=== PATIENT | female | born 1995 | race Caucasian/White ===

== ENCOUNTER 2017-03-30 14:05 | Emergency (ER) | payer OTHER ==
[2017-03-30 16:48] VITALS: BP 107/61
--- NOTE | 2017-03-30 16:59 | UC ---
HPI Wound/Suture Re-check - HPI Summary HPI Summary: Had sutures placed here in R thigh 03/20/17 after getting cut from something in her trash bag. Here for suture removal. No problems with pain, drainage or redness. - History Of Current Complaint Chief Complaint: SHATNELLkin Stated Complaint: SUTURE REMOVAL Time Seen by Provider: 03/30/17 16:04 Hx Obtained From: Patient Hx Last Menstrual Period: 03/11/17 Onset/Duration: Sudden Onset Severity: Mild Surgery Date: 03/20/17 - Allergies/Home Medications Allergies/Adverse Reactions: Allergies Allergy/AdvReac Type Severity Reaction Status Date / Time No Known Allergies Allergy Verified 03/30/17 16:47 PMH/Surg Hx/FS Hx/Imm Hx Previously Healthy: Yes - Surgical History Surgical History: Yes Surgery Procedure, Year, and Place: Tonsils. Nasal sx - Family History Known Family History: Negative: Diabetes - Social History Alcohol Use: Occasionally Substance Use Type: None Smoking Status (MU): Never Smoked Tobacco - Immunization History Most Recent Influenza Vaccination: none 2016 Review of Systems Constitutional: Negative Skin: Other - sutures Eyes: Negative ENT: Negative Respiratory: Negative Cardiovascular: Negative Gastrointestinal: Negative Genitourinary: Negative Motor: Negative Neurovascular: Negative Musculoskeletal: Negative Neurological: Negative Psychological: Negative Is Patient Immunocompromised?: No All Other Systems Reviewed And Are Negative: Yes Physical Exam Triage Information Reviewed: Yes Appearance: Well-Appearing, No Pain Distress, Well-Nourished Vital Signs: Initial Vital Signs Temp 99.3 F 03/30/17 16:46 Pulse 88 03/30/17 16:46 Resp 14 03/30/17 16:46 BP 107/61 03/30/17 16:46 Vital Signs Reviewed: Yes Eye Exam: Normal Eyes: Positive: Conjunctiva Clear ENT Exam: Normal ENT: Positive: Normal ENT inspection, Hearing grossly normal, Pharynx normal, TMs normal Neck exam: Normal Respiratory Exam: Normal Respiratory: Positive: Chest non-tender, Lungs clear, Normal breath sounds, No respiratory distress, No accessory muscle use Cardiovascular Exam: Normal Cardiovascular: Positive: RRR, No Murmur Musculoskeletal Exam: Normal Neurological Exam: Normal Neurological: Positive: Alert Psychological Exam: Normal Skin Exam: Other - 5 sutures removed from R thigh, pt flores well. Wound well- healed. Course/Dx - Differential Dx - Laceration/Wound Provider Diagnoses: suture removal R thigh Discharge - Discharge Plan Condition: Stable Disposition: HOME Patient Education Materials: Stitches Removal (ED) Referrals: Avery Lopes MD [Primary Care Provider] -
== END 2017-03-30 16:55 | disposition home or self-care (01) ==
LOC: UCCORT 14:05
DX: S71.111D Laceration without foreign body, right thigh, subsequent encounter (principal); W45.8XXD Other foreign body or object entering through skin, subsequent encounter
CPT/HCPCS: 99211; G0463

== ENCOUNTER 2017-06-28 20:26 | Emergency (ER) | payer OTHER ==
[2017-06-28 21:02] VITALS: BP 119/63
[2017-06-28] MEDS ORDERED: NS 0.9% 1000 ML* 1,000 ML IV ONE (21:17)
[2017-06-28] MEDS ORDERED: Ondansetron INJ* 2 MG/ML VIAL IV ONE (21:18)
--- NOTE | 2017-06-28 21:22 | UC ---
Abdominal Pain Female HPI - HPI Summary HPI Summary: Multiple episodes of vomiting and diarrhea since this morning, "more times than I can count". - History of Current Complaint Chief Complaint: UCGeneralIllness Stated Complaint: VOMITING DIARRHEA Time Seen by Provider: 06/28/17 21:14 Hx Obtained From: Patient Hx Last Menstrual Period: 06/02/17 ?: No Onset/Duration: Sudden Onset - this morning., Still Present Severity Initially: Severe Severity Currently: Severe Pain Intensity: 9 Associated Signs and Symptoms: Positive: Nausea, Vomiting, Diarrhea Allergies/Adverse Reactions: Allergies Allergy/AdvReac Type Severity Reaction Status Date / Time No Known Allergies Allergy Verified 06/28/17 20:54 PMH/Surg Hx/FS Hx/Imm Hx Previously Healthy: Yes - Surgical History Surgical History: Yes Surgery Procedure, Year, and Place: Tonsils. Nasal sx - Family History Known Family History: Positive: Hypertension Negative: Diabetes - Social History Occupation: Student Lives: Dormitory/Roommates Alcohol Use: Occasionally Alcohol Amount: 3 X PER MO. Substance Use Type: None Smoking Status (MU): Never Smoked Tobacco - Immunization History Most Recent Influenza Vaccination: none 2016 Review of Systems Gastrointestinal: Vomiting, Diarrhea Is Patient Immunocompromised?: No All Other Systems Reviewed And Are Negative: Yes Physical Exam Triage Information Reviewed: Yes Appearance: No Pain Distress, Well-Nourished, Ill-Appearing Vital Signs: Initial Vital Signs Temp 99.1 F 06/28/17 20:56 Pulse 119 06/28/17 20:56 Resp 18 06/28/17 20:56 BP 119/63 06/28/17 20:56 Pulse Ox 100 06/28/17 20:56 Vital Signs Reviewed: Yes Eyes: Positive: Conjunctiva Clear ENT: Positive: Pharynx normal, TMs normal Neck exam: Normal Respiratory Exam: Normal Cardiovascular: Positive: RRR, No Murmur, Tachycardia Abdomen Description: Negative: Nontender - tender epigastric and LLQ., McBurney' s Point Tenderness, Peritoneal Signs Bowel Sounds: Positive: Hyperactive Musculoskeletal Exam: Normal Neurological: Positive: Alert, Fatigued Psychological Exam: Normal Skin Exam: Normal Re-Evaluation - Re-Evaluation First Eval Re-Evaluation Time: 22:03 Change: Improved - Feeling much better. Abd Pain Female Course/Dx - Differential Dx/Diagnosis Differential Diagnosis: Diverticulitis, Gall Bladder Disease, Pancreatitis Provider Diagnoses: Acute viral gastroenteritis Discharge - Discharge Plan Condition: Stable Disposition: HOME Prescriptions: Ondansetron TAB* [Zofran 4 MG Tab*] 4 mg PO Q6H PRN #14 tab PRN Reason: Nausea/Vomiting Patient Education Materials: Gastroenteritis (ED), Ondansetron (By mouth) Referrals: No Primary Care Phys,NOPCP [Primary Care Provider] -
[2017-06-28] MEDS ORDERED: Ondansetron ODT TAB* 4 MG PO ONE (22:02)
== END 2017-06-28 22:30 | disposition home or self-care (01) ==
LOC: UCCORT 20:26
DX: A08.4 Viral intestinal infection, unspecified (principal)
CPT/HCPCS: 96360; 96375; 99212; A9270-GY; G0463; J2405